=== PATIENT | female | born 1985 | race African-American/Black ===

== ENCOUNTER 2022-10-20 16:03 | Emergency (ER) | payer MEDICAID ==
[~2022-10-20] VITALS: Ht 154 cm; Wt 108.8 kg
[2022-10-20 16:42] LABS: BILIRUBIN,URINE NEGATIVE (NEGATIVE); CLARITY,URINE CLEAR; COLOR,URINE ORANGE; GLUCOSE, URINE (UA) NEGATIVE (NEGATIVE); KETONES,URINE NEGATIVE (NEGATIVE); LEUKOCYTE ESTERASE ,URINE NEGATIVE (NEGATIVE); NITRITE,URINE NEGATIVE (NEGATIVE); PH,URINE 5.5 (5-9); PROTEIN,URINE TRACE (NEGATIVE)
[2022-10-20 16:52] LABS: BACTERIA,URINE FEW /HPF; RBC,URINE 0-2 /HPF; WBC,URINE 0-2 /HPF
[2022-10-20] MEDS ORDERED: DOXY100C5 PO (16:59)
[2022-10-20] MEDS ORDERED: cefTRIAXone 500 MG/5 ML ML IM ONE (17:00)
[2022-10-20] MEDS ORDERED: LIDOCAINE 1% INJ 20 ML VIAL INJ ONE (17:00)
--- NOTE | 2022-10-20 17:00 | ED GU-Female ---
General Chief Complaint: - Reproductive Stated Complaint: FEMALE ISSUES WANTS A CHECK UP Nursing Triage Note: PT PRESENTS TO ED VIA POV FROM HOME WITH COMPLAINTS OF VAGINAL ITCHING, BURING, AND DISCHARGE SINCE HAVING INTERCOURSE LAST WEEKEND. History of Present Illness Date Seen by Provider: Oct 20, 2022 Time Seen by Provider: 16:10 Initial Comments Patient is a 37-year-old female who presents to the emergency department for evaluation of vaginal discharge and irritation that began several days ago. Patient is concerned she has an STI as she recently had unprotected intercourse. She states her vaginal irritation is constant and is not particularly worse with urination. She denies any abdominal pain, fever, or any other symptoms. She has not taken anything for the symptoms. Allergies and Home Medications Allergies Coded Allergies: No Known Drug Allergies (Unverified , 10/20/22) Patient Home Medication List Home Medication List Reviewed: Yes Doxycycline Hyclate (Doxycycline Hyclate) 100 Mg Capsule, 100 MG PO BID Prescribed by: Jerry Cisneros on 10/20/22 2121 Review of Systems Review of Systems Constitutional: no symptoms reported EENTM: no symptoms reported Respiratory: no symptoms reported Cardiovascular: no symptoms reported Gastrointestinal: no symptoms reported Genitourinary: see HPI, burning, discharge Past Zvqlyic-Bzarlp-Rrmauf Hx Patient Social History Tobacco Use?: Yes Tobacco type used: Cigarettes Smoking Status: Current Everyday Smoker Substance use?: No Alcohol Use?: Yes Alcohol Frequency: Once in a while Pt feels they are or have been: No Past Medical History Surgery/Hospitalization HX: PMH: HTN Physical Exam Vital Signs Vital Signs - First Documented 10/20/22 16:10 Temp 36.1 Pulse 92 Resp 16 B/P (MAP) 186/112 (136) Pulse Ox 100 Capillary Refill : Less Than 3 Seconds Height, Weight, BMI Height: '" Weight: lbs. oz. kg; 45.00 BMI Method: General Appearance: WD/WN, no apparent distress Neck: non-tender, full range of motion, supple, normal inspection Cardiovascular: regular rate, rhythm Respiratory: chest non-tender, lungs clear, normal breath sounds, no respiratory distress, no accessory muscle use Gastrointestinal: normal bowel sounds, non tender, soft Progress/Results/Core Measures Suspected Sepsis SIRS Temperature: Pulse: 92 Respiratory Rate: 16 Blood Pressure 186 /112 Mean: 136 Results/Orders Lab Results Laboratory Tests Test 10/20/22 16:30 Range/Units Urine Color ORANGE Urine Clarity CLEAR Urine pH 5.5 5-9 Urine Specific [place] >=1.030 1.016-1.022 Urine Protein TRACE H NEGATIVE Urine Glucose (UA) NEGATIVE NEGATIVE Urine Ketones NEGATIVE NEGATIVE Urine Nitrite NEGATIVE NEGATIVE Urine Bilirubin NEGATIVE NEGATIVE Urine Urobilinogen 0.2 < = 1.0 MG/DL Urine Leukocyte Esterase NEGATIVE NEGATIVE Urine RBC (Auto) TRACE-I H NEGATIVE Urine RBC 0-2 /HPF Urine WBC 0-2 /HPF Urine Squamous Epithelial Cells 2-5 /HPF Urine Crystals NONE /LPF Urine Bacteria FEW H /HPF Urine Casts PRESENT /LPF Urine Hyaline Casts 5-10 H /LPF Urine Mucus SMALL H /LPF Urine Culture Indicated NO My Orders Orders - JERRY CISNEROS APRN Ua Culture If Indicated (10/20/22 16:33) Neis Jordan Dna Urine Test (10/20/22 16:33) Chlamydia Trachomatis Urine (10/20/22 16:33) Ceftriaxone (Rocephin) (10/20/22 17:00) Lidocaine 1% Inj 20 Ml (Xylocaine 1% Inj (10/20/22 17:00) Medications Given in ED Current Medications Medications Dose Ordered Sig/Elpidio Route Start Time Stop Time Status Last Admin Dose Admin Ceftriaxone Sodium 500 mg ONCE ONCE IM 10/20/22 17:00 10/20/22 17:01 DC 10/20/22 17:06 500 MG Lidocaine HCl 1 ml ONCE ONCE INJ 10/20/22 17:00 10/20/22 17:01 DC 10/20/22 17:06 1 ML Vital Signs/I&O 10/20/22 10/20/22 16:10 17:15 Temp 36.1 36.1 Pulse 92 90 Resp 16 16 B/P (MAP) 186/112 (136) 182/100 Pulse Ox 100 100 Capillary Refill : Less Than 3 Seconds Blood Pressure Mean: 136 Progress Note : Progress Note Patient is nontoxic and well-hydrated on exam. No adventitious lung sounds or increased work of breathing noted. Abdominal exam is benign with no focal provocation of pain or distention/rigidity. Urinalysis is obtained which is largely unremarkable. Gonorrhea and Chlamydia urine test obtained and are pending. Patient treated empirically with 500 mg of IM Rocephin and will be discharged home with a 7-day course of doxycycline. Follow-up with PCP. She was educated that we would notify her if her test are positive. If the test are positive she needs to notify any recent sexual partners so that they also may be needed. Return precautions for urgent symptomology discussed. Mother verbalized understanding. Departure Impression Primary Impression: Screening for STD (sexually transmitted disease) Additional Impression: Vaginal discharge Disposition: HOME, SELF-CARE Condition: Stable Departure-Patient Inst. Decision time for Depature: 16:55 Referrals: [facility] (PCP) Primary Care Physician Patient Instructions: Screening for Sexually Transmitted Infections, Vaginal Discharge Add. Discharge Instructions: Abstain from sex for at least 1 week after treatment. You will be notified if your tests are positive. If they are positive it is important you notify any recent sexual partners so they may also be treated. All discharge instructions reviewed with patient and/or family. Voiced understanding. Scripts Doxycycline Hyclate (Doxycycline Hyclate) 100 Mg Capsule 100 MG PO BID for 7 Days, #14 CAP 0 Refills Prov: JERRY CISNEROS APRN 10/20/22 JERRY CISNEROS APRN Oct 20, 2022 17:00
[2022-10-20 17:15] VITALS: BP 182/100
== END 2022-10-20 17:14 | disposition home or self-care (01) ==
LOC: ER 16:06
DX: N89.8 Other specified noninflammatory disorders of vagina (principal); F17.210 Nicotine dependence, cigarettes, uncomplicated; Z11.3 Encounter for screening for infections with a predominantly sexual mode of transmission; Z28.310 Unvaccinated for COVID-19
CPT/HCPCS: 36415; 81000; 84703; 87491; 87591; 99284

== ENCOUNTER 2022-12-09 19:55 | Outpatient (CLI) | payer MEDICAID ==
[~2022-12-09 19:55] MED LIST: DOXY100C5 PO
== END 2022-12-10 06:27 | disposition home or self-care (01) ==
LOC: SLEEP 19:55
PROVIDERS: ATTEND Nurse Practitioner Family
DX: G47.10 Hypersomnia, unspecified (principal); M54.41 Lumbago with sciatica, right side; M54.42 Lumbago with sciatica, left side; G89.29 Other chronic pain; H61.22 Impacted cerumen, left ear; M72.2 Plantar fascial fibromatosis
CPT/HCPCS: 95810

== ENCOUNTER 2023-04-26 04:54 | Emergency (ER) | payer SELFPAY ==
[~2023-04-26] VITALS: Ht 154 cm; Wt 109.0 kg
[2023-04-26 05:00] VITALS: BP 137/88
[2023-04-26] MEDS ORDERED: HYDR25TA4 PO (05:04)
[2023-04-26] MEDS ORDERED: AMOXICILLIN 500 MG (POLYMOX) CAP PO STA (05:13)
[2023-04-26] MEDS ORDERED: KETOROLAC 30 MG/ML VIAL IM ONE (05:15)
--- NOTE | 2023-04-26 05:21 | ED EENT ---
History of Present Illness General Chief Complaint: Dental Problems/Pain Stated Complaint: TOOTH PAIN,HIGH BLOOD PRESSURE,CHAVEZ Nursing Triage Note: c/o bilateral rear upper dental pain x1 week. reports htn tonight. hctz taken approx. 30min waitstaff captain. c/o headache. Source: patient Exam Limitations: other (Patient somewhat disagreeable and reluctant during interview) History of Present Illness Date Seen by Provider: April 26, 2023 Time Seen by Provider: 05:03 Initial Comments This 37 year old woman drove herself to the ER this morning to be evaluated for dental pain, headache, and hypertension. She took her BP meds about 45 minutes prior to arrival. She does not know what these medications are. She has severe dental decay in the posterior left molars which is causing her significant headache. BP is not significantly elevated during triage. Allergies and Home Medications Allergies Coded Allergies: No Known Drug Allergies (Unverified , 10/20/22) Patient Home Medication List Home Medication List Reviewed: Yes Amoxicillin (Amoxicillin) 500 Mg Capsule, 1,000 MG PO BID Prescribed by: MOISES KNAPP on 04/26/23 05 Hydrochlorothiazide (Hydrochlorothiazide) 25 Mg Tablet, Unknown Dose PO, (Reported) Entered as Reported by: JARROD GRIFFITH on 04/26/23 0504 Last Action: New Order Tramadol HCl (Tramadol HCl) 50 Mg Tablet, 50 MG PO Q6H PRN for PAIN BREAKTROUGH Prescribed by: MOISES KNAPP on 04/26/23 0524 Discontinued Medications Doxycycline Hyclate (Doxycycline Hyclate) 100 Mg Capsule, 100 MG PO BID Discontinued Reason: No Longer Taking Prescribed by: Jerry Cisneros on 10/20/22 1659 Last Action: Discontinued Review of Systems Review of Systems Constitutional: no symptoms reported Eyes: No Symptoms Reported Ears: No Symptoms Reported Nose: no symptoms reported Mouth: see HPI Throat: no symptoms reported Respiratory: no symptoms reported Cardiovascular: see HPI : No Neurological: See HPI Past Ocpxvlo-Khbyfc-Dofhat Hx Patient Social History Tobacco Use?: Yes Smoking Status: Current Everyday Smoker Substance use?: No Alcohol Use?: Yes Alcohol Frequency: Once in a while Pt feels they are or have been: No Immunizations Up To Date First/Initial COVID19 Vaccinat: na Past Medical History Surgery/Hospitalization HX: PMH: HTN, bronchitis hernia Surgeries: Yes Abdominal (Hernia) Respiratory: No Cardiac: Yes Hypertension Neurological: No : No Genitourinary: No Gastrointestinal: No Musculoskeletal: No Endocrine: No HEENT: Yes (severe dental decay) Cancer: No Psychosocial: No Physical Exam Vital Signs Vital Signs - First Documented 04/26/23 05:00 Temp 36.5 Pulse 84 Resp 16 B/P (MAP) 137/88 (104) Pulse Ox 99 O2 Delivery Room Air Height, Weight, BMI Height: '" Weight: lbs. oz. kg; 45.00 BMI Method: General Appearance: WD/WN, no apparent distress Ears: bilateral ear auricle normal, bilateral ear canal normal, bilateral ear TM normal Nose: normal inspection Mouth/Throat: pharynx normal, other (Severe dental decay especially in the left upper molars. Teeth are eroded to the roots. There is edema and induration surrounding the roots without overt abscess or drainage.) Neck: normal inspection Cardiovascular: regular rate, rhythm, no murmur Respiratory: lungs clear, normal breath sounds, no respiratory distress Neurologic/Psychiatric: alert, other (Irritable mood) Skin: normal color, warm/dry Progress/Results/Core Measures Results/Orders My Orders Orders - MOISES VILLAR MD Amoxicillin Capsule (Polymox Capsule) (04/26/23 05:13) Ketorolac Injection (Toradol Injection) (04/26/23 05:15) Medications Given in ED Current Medications Medications Dose Ordered Sig/Elpidio Route Start Time Stop Time Status Last Admin Dose Admin Ketorolac Tromethamine 30 mg ONCE ONCE IM 04/26/23 05:15 04/26/23 05:16 DC 04/26/23 05:21 30 MG Vital Signs/I&O 04/26/23 04/26/23 05:00 05:21 Temp 36.5 36.5 Pulse 84 Resp 16 B/P (MAP) 137/88 (104) Pulse Ox 99 O2 Delivery Room Air Blood Pressure Mean: 104 Progress Progress Note : Progress Note Patient was treated with Toradol injection and amoxicillin. See discharge in structions for discussion and prescriptions provided. Departure Impression Primary Impression: Dental decay Additional Impression: Pain, dental Disposition: 01 HOME, SELF-CARE Condition: Stable Departure-Patient Inst. Decision time for Depature: 05:19 Referrals: [facility] (PCP/Family) Primary Care Physician Patient Instructions: Tooth Decay, Adult (DC), Dental Pain ED Add. Discharge Instructions: Complete your antibiotics as prescribed. Follow-up with a dentist as soon as possible. Your symptoms will ultimately not improve until you have dental extractions. Use Ibuprofen up to 600 mg every 6 hours and Tylenol (acetaminophen) up to 1000 mg ever 6 hours as needed for primary pain control. Add Ultram as prescribed for pain not controlled by [id number] medications. Return to care if you have worsening symptoms despite following these instructions. All discharge instructions reviewed with patient and/or family. Voiced understanding. Scripts Tramadol HCl (Tramadol HCl) 50 Mg Tablet 50 MG PO Q6H PRN for PAIN BREAKTROUGH, #10 TAB Prov: MOISES VILLAR MD 04/26/23 Amoxicillin (Amoxicillin) 500 Mg Capsule 1000 MG PO BID, #40 CAP 0 Refills Prov: MOISES VILLAR MD 04/26/23 Copy Copies To 1: [facility]/MOISES SMILEY MD April 26, 2023 05:21
[2023-04-26] MEDS ORDERED: AMOX500C2 PO (05:23)
[2023-04-26] MEDS ORDERED: TRM50T PO (05:23)
== END 2023-04-26 05:27 | disposition home or self-care (01) ==
LOC: EDUNIT# 04:54 → ER 04:57
DX: K02.9 Dental caries, unspecified (principal); F17.200 Nicotine dependence, unspecified, uncomplicated; Z28.310 Unvaccinated for COVID-19
CPT/HCPCS: 99284